=== PATIENT | male | born 1980 | race Caucasian/White ===

== ENCOUNTER 2017-12-07 10:58 | Emergency (ER) | payer BC ==
[2017-12-07 11:25] VITALS: BP 143/82
[2017-12-07] MEDS ORDERED: Aspirin 81 mg CHEW TAB* 81 MG TAB.CHEW PO ONE (11:32)
--- NOTE | 2017-12-07 11:34 | UC ---
Cardiac HPI - HPI Summary HPI Summary: 37-year-old male with history of mild hypertension, presents with 1 hour of sudden onset lower chest pain starting approximately one hour prior, described as sharp, radiating towards his back, worse with movement of his torso, not associated with shortness of breath, nausea, vomiting, or diaphoresis. No prior episodes. No remaining or worsening factors. No positional changes. No recent travel, recent surgery, or recent immobilization. Complains of mild pleuritic pain. - History of Current Complaint Chief Complaint: UCChestPain Stated Complaint: CHEST/BACK PAIN Pain Intensity: 4 - Allergy/Home Medications Allergies/Adverse Reactions: Allergies Allergy/AdvReac Type Severity Reaction Status Date / Time No Known Allergies Allergy Verified 12/07/17 11:23 Home Medications: Home Medications NK [No Home Medications Reported] 12/07/17 [History Confirmed 12/07/17] PMH/Surg Hx/FS Hx/Imm Hx - Additional Past Medical History Additional PMH: Mild hypertension not taking any medications Previously Healthy: Yes - Surgical History Surgical History: None - Social History Alcohol Use: Daily Substance Use Type: None Smoking Status (MU): Never Smoked Tobacco Review of Systems Constitutional: Negative Skin: Negative Eyes: Negative ENT: Negative Respiratory: Other - Pleuritic pain as described in history of present illness Cardiovascular: Chest Pain Gastrointestinal: Negative Genitourinary: Negative Neurovascular: Negative Musculoskeletal: Negative Neurological: Negative All Other Systems Reviewed And Are Negative: Yes Physical Exam - Summary Physical Exam Summary: Gen: alert, in no acute distress HEENT: EOMI, normocephalic, atruamatic Neck: supple, no masses CV: Normal s1 s2, no murmurs. Normal distal pulses in the radial and pedal areas bilaterally. Resp: normal breath sounds b/l GI: no tenderness, no masses Musculoskeletal: normal ROM all 4 extremities Neuro: no obvious focal neurological deficits Skin: no rash Lymph: no lymphadenopathy Psych: appropriate affect, oriented Triage Information Reviewed: Yes Vital Signs: Initial Vital Signs Temp 36.4 C 12/07/17 11:16 Pulse 103 12/07/17 11:16 Resp 18 12/07/17 11:16 BP 164/101 12/07/17 11:16 Pulse Ox 100 12/07/17 11:16 Diagnostics - EKG EKG Comments: Normal sinus rhythm at 97 bpm, no acute ischemic ST changes, no ectopy. - Assessment/Plan Course Of Treatment: Spoke with Dr. Wood at [facility], I recommended that Mr. Pastrana report to the emergency department at [facility] for further evaluation given his chest pain including lab work and possible imaging. Hemodynamically stable, EKG shows no acute ischemic changes, patient and family agreed to instructions to report to the ED - Clinical Impression Provider Diagnoses: CHEST PAIN Discharge - Sign-Out/Discharge Documenting (check all that apply): Patient Departure All imaging exams completed and their final reports reviewed: No Studies - Discharge Plan Condition: Stable Disposition: HOME-RECOMMEND TO ED Patient Education Materials: Chest Pain (ED) Referrals: No Primary Care Phys,NOPCP [Primary Care Provider] - Additional Instructions: PLEASE GO STRAIGHT TO [facility] - Billing Disposition and Condition Condition: STABLE Disposition: Home-Recommend to ED
== END 2017-12-07 11:40 | disposition home health service (06) ==
LOC: UCCORT 10:58
DX: R07.9 Chest pain, unspecified (principal)
CPT/HCPCS: 93005; 99212; A9270-GY; G0463

== ENCOUNTER 2019-03-23 07:02 | Emergency (ER) | payer BC ==
[2019-03-23 07:16] VITALS: BP 146/77
--- NOTE | 2019-03-23 07:26 | UC ---
Respiratory Complaint HPI - HPI Summary HPI Summary: cough x 4 days symptoms are moderate cough is productive with yellow sputum worse with deep breathing , better with rest and fluid + nasal congestion, pnd, no fever, no chills, mild body aches - History of Current Complaint Chief Complaint: UCRespiratory Stated Complaint: COUGH CHEST CONGESTION Time Seen by Provider: 03/23/19 07:13 Hx Obtained From: Patient Onset/Duration: Gradual Onset, Lasting Days - 4, Still Present Timing: Constant Severity Initially: Moderate Severity Currently: Moderate Pain Intensity: 8 Character: Cough: Productive Aggravating Factors: Exertion, Deep Breaths Alleviating Factors: Nothing Associated Signs And Symptoms: Positive: URI, Nasal Congestion. Negative: Dyspnea, Fever, Chills, Pleuritic Chest Pain, Wheezing, Hemoptysis, Dizziness, Calf Pain, Calf Swelling - Allergies/Home Medications Allergies/Adverse Reactions: Allergies Allergy/AdvReac Type Severity Reaction Status Date / Time No Known Allergies Allergy Verified 03/23/19 07:16 Home Medications: Home Medications Guaifenesin/Dextromethorphan [Robitussin Cough-Chest Dm Liq] 1 dose PO ONCE PRN 03/23/19 [History Confirmed 03/23/19] Lisinopril TAB* [Prinivil TAB*] 10 mg PO DAILY 03/23/19 [History Confirmed 03/23] PMH/Surg Hx/FS Hx/Imm Hx Previously Healthy: Yes Cardiovascular History: Hypertension - Surgical History Surgical History: None - Family History Known Family History: Positive: Hypertension - Social History Alcohol Use: Occasionally Substance Use Type: None Smoking Status (MU): Former Smoker Type: Cigarettes Length of Time of Smoking/Using Tobacco: 2016 Review of Systems All Other Systems Reviewed And Are Negative: Yes Constitutional: Negative: Fever, Chills ENT: Positive: Nasal Discharge. Negative: Sore Throat, Ear Ache Respiratory: Positive: Cough. Negative: Shortness Of Breath Cardiovascular: Negative: Chest Pain Is Patient Immunocompromised?: No Physical Exam Triage Information Reviewed: Yes Appearance: Well-Appearing, No Pain Distress, Well-Nourished Vital Signs: Initial Vital Signs Temp 99.2 F 03/23/19 07:13 Pulse 105 03/23/19 07:13 Resp 16 03/23/19 07:13 BP 146/77 03/23/19 07:13 Pulse Ox 99 01/07/20 07:13 Vital Signs Reviewed: Yes Eye Exam: Normal Eyes: Positive: Conjunctiva Clear ENT: Positive: Normal ENT inspection, Hearing grossly normal, Pharynx normal, Nasal congestion, Nasal drainage, TMs normal. Negative: Tonsillar swelling, Tonsillar exudate Neck exam: Normal Neck: Positive: Supple, Nontender, No Lymphadenopathy Respiratory: Positive: Chest non-tender, Lungs clear, Normal breath sounds Cardiovascular: Positive: No Murmur, Tachycardia Skin Exam: Normal Respiratory Course/Dx - Course Course Of Treatment: dx : HTN please monitor your bp at home , cont. with your current bp meds follow up with your pcp in 7 to 10 days - Differential Dx/Diagnosis Provider Diagnosis: Bronchitis, Hypertension Discharge ED - Sign-Out/Discharge Documenting (check all that apply): Patient Departure All imaging exams completed and their final reports reviewed: No Studies - Discharge Plan Condition: Stable Disposition: HOME Prescriptions: Benzonatate CAP* [Tessalon 100 MG CAP*] 100 mg PO TID PRN #15 cap PRN Reason: Cough Patient Education Materials: Acute Bronchitis (ED) Referrals: No Primary Care Phys,NOPCP [Primary Care Provider] - If Needed Additional Instructions: viral bronchitis no need for antibiotics - Billing Disposition and Condition Condition: STABLE Disposition: Home
== END 2019-03-23 07:25 | disposition home or self-care (01) ==
LOC: UCCORT 07:02
DX: J40 Bronchitis, not specified as acute or chronic (principal); I10 Essential (primary) hypertension; R09.89 Other specified symptoms and signs involving the circulatory and respiratory systems; Z87.891 Personal history of nicotine dependence; Z79.899 Other long term (current) drug therapy
CPT/HCPCS: 99212; G0463